=== PATIENT | female | born 1995 | race Caucasian/White ===

== ENCOUNTER 2017-10-25 10:24 | Emergency (ER) | payer BC ==
--- NOTE | 2017-10-25 11:11 | ED ---
HPI Cardiac - HPI Summary HPI Summary: This is scribe Arianna Castano documenting for attending Luis Holland MD. The patient is a 22 y/o F presenting to [facility] c/o heart rate intermittently increasing and decreasing with episodes of chest pain and heart palpitations worsening in the last month. She has a hx of hyperthyroidism, which causes her heart rate to increase into the 100s. She has noticed that her heart rate has gone down into the 50s and 60s but is increasing back into the 90s. This has been happening more quickly than usual with associated sharp and stabbing pain, but she is not currently in any pain. She additionally c/o extreme dizziness and dry cough. She denies nausea and vomiting. The patient is not from this area , but she sees a scraper operator at [facility] in the [place] area. She does not remember the last time she had her TSH checked. She notes that she has a previous hx of small murmur. She had cholecysectomy. FHx of HTN, thyroid cancer, and oralia's thyroiditis. She does not smoke or drink alcohol. I, Dr. Holland personally performed the services described in this documentation as scribed in my presence and it is both accurate and complete. - History of Current Complaint Chief Complaint: EDDysrhythmPalp Stated Complaint: CHEST DISCOMFORT Time Seen by Provider: 10/25/17 10:28 Hx Obtained From: Patient Onset/Duration: Started Days Ago, Still Present Timing: Intermittent Initial Severity: Mild Current Severity: Mild Pain Intensity: 0 Pain Scale Used: 0-10 Numeric Chest Pain Location: Diffuse Chest Pain Radiates: No Character: Sharp/Stabbing Aggravating Factor(s): Nothing Alleviating Factor(s): Nothing Associated Signs and Symptoms: Positive: Dizziness, Cough - dry. Negative: Nausea, Vomiting - Allergy/Home Medications Allergies/Adverse Reactions: Allergies Allergy/AdvReac Type Severity Reaction Status Date / Time erythromycin base Allergy Rash Verified 10/25/17 10:31 Home Medications: Home Medications Pantoprazole Sodium [Protonix] 40 mg PO DAILY 10/25/17 [History Confirmed ] Propranolol HCl 10 mg PO TID 10/25/17 [History Confirmed 10/25/17] Propylthiouracil 50 mg PO DAILY 10/25/17 [History Confirmed 10/25/17] PMH/Surg Hx/FS Hx/Imm Hx Endocrine/Hematology History: Reports: Hx Thyroid Disease - hyperthyroid Denies: Hx Diabetes Cardiovascular History: Denies: Hx Hypertension Sensory History: Denies: Hx Deafness Opthamlomology History: Denies: Hx Legally Blind EENT History: Denies: Hx Deafness Infectious Disease History: No Infectious Disease History: Denies: Traveled Outside the [place] in Last 30 Days - Family History Known Family History: Positive: Hypertension, Other - oralia's thyroiditis, thyroid cancer - Social History Alcohol Use: None Substance Use Type: Reports: None Smoking Status (MU): Never Smoked Tobacco Review of Systems Positive: Other - dizziness Positive: Palpitations, Chest Pain Positive: Cough - dry Negative: Vomiting, Nausea All Other Systems Reviewed And Are Negative: Yes Physical Exam - Summary Physical Exam Summary: VITAL SIGNS: Reviewed. GENERAL: Patient is a well-developed and obese female who is lying comfortable in the stretcher. Patient is not in any acute respiratory distress. HEAD AND FACE: No signs of trauma. No ecchymosis, hematomas or skull depressions. No sinus tenderness. EYES: PERRLA, EOMI x 2, No injected conjunctiva, no nystagmus. EARS: Hearing grossly intact. Ear canals and tympanic membranes are within normal limits. MOUTH: Oropharynx within normal limits. NECK: Supple, trachea is midline, no adenopathy, no JVD, no carotid bruit, no c- spine tenderness, neck with full ROM. CHEST: Symmetric, no tenderness at palpation LUNGS: Clear to auscultation bilaterally. No wheezing or crackles. CVS: Regular rate and rhythm, S1 and S2 present, no murmurs or gallops appreciated. ABDOMEN: Soft, non-tender. No signs of distention. No rebound no guarding, and no masses palpated. Bowel sounds are normal. EXTREMITIES: FROM in all major joints, no edema, no cyanosis or clubbing. NEURO: Alert and oriented x 3. No acute neurological deficits. Speech is normal and follows commands. SKIN: Dry and warm Triage Information Reviewed: Yes Vital Signs On Initial Exam: Initial Vitals Temp Pulse Resp BP Pulse Ox 97.7 F 83 18 139/105 99 10/25/17 10:33 10/25/17 10:33 10/25/17 10:33 10/25/17 10:33 10/25/17 10:33 Vital Signs Reviewed: Yes Diagnostics - Vital Signs Vital Signs Temp Pulse Resp BP Pulse Ox 10/25/17 10:44 81 22 152/75 100 10/25/17 10:42 95 10/25/17 10:33 97.7 F 83 18 139/105 99 - Laboratory Result Diagrams: 10/25/17 11:22 10/25/17 11:22 Lab Statement: Any lab studies that have been ordered have been reviewed, and results considered in the medical decision making process. - Radiology CXR Xray Interpretation: No Acute Changes - No evidence for acute disease. ED physician has reviewed this report. Radiology Interpretation Completed By: Radiologist - EKG 11:11 Cardiac Rate: NL - 70 BPM EKG Rhythm: Sinus Rhythm EKG Interpretation: No ST elevations. Re-Evaluation - Re-Evaluation First Eval Re-Evaluation Time: 01:10 Change: Improved Comment: I spoke with the patient about discharge home with dx of chest pain and heart palpitations. She is agreeable with this plan. Disposition - Course Course Of Treatment: The patient was found to have increased BP in the ED. The patient will follow up with PCP for better control of BP. Assessment/Plan: This patient is a 22-year-old female who presents to the emergency department with chief complaint of having chest pain and palpitations. The patient has past medical history significant for Hashimotos disease. The patient is taken PTU and metoprolol. Blood test results without any significant abnormality, including the TSH and T4 which is normal. EKG doesnt show any abnormality. Chest x-ray impression: No acute abnormality. Since I did not find any signs of arrhythmia I discussed the findings and test results with the patient that she probably would benefit of a Holter monitor which he will be provided with the primary care physician. She was also requested to follow up with cardiology. I discussed all the findings and test results with the patient. Patient was instructed to return to the emergency room immediately if any of the symptoms return or worsens. Plan of care was discussed with the patient and understands and agrees. All questions were answered at patient satisfaction. There were no further complaints or concerns. Lung exam before discharge: CTA B/L. Good air exchange. No wheezing or crackles heard. CVS: S1 and S2 present. No murmurs appreciated. Patient is alert and oriented x 3. Patient is hemodynamically stable. Patient will be discharged home with follow up PCP in the next 2-3 days - Differential Dx - Cardiopulmonary Differential Diagnoses - Cardiopulmonary: CAD, CHF, Chest Wall Pain, Paroxysmal SVT, Paroxysmal VT, Pleurisy - Diagnoses Provider Diagnoses: Chest pain, Heart palpitations Discharge - Sign-Out/Discharge Documenting (check all that apply): Patient Departure - Patient will be discharged home. - Discharge Plan Condition: Stable Disposition: HOME Patient Education Materials: Chest Pain (ED), Heart Palpitations (ED) Referrals: [facility] [place] PHYSICIAN REFERRAL [Outside] - 1 Week Additional Instructions: FOLLOW UP WITH YOUR PRIMARY CARE PROVIDER WITHIN 1 WEEK FOR HIGH BLOOD PRESSURE NOTED TODAY. RETURN TO THE ED FOR ANY WORSENING OR NEW SYMPTOMS. Attestations Scribe Attestation: This is denisha Castano documenting for attending Dr. Luis Holland MD. User Type: Provider with Scribe Provider Attestation: The documentation recorded by the scribe accurately reflects the service I personally performed and the decisions made by me. Addendum entered and electronically signed by Luis Holland MD 10/28/17 12:23:
[2017-10-25 11:40] LABS: ABS Basophils 0 10^3/ul (0-0.2); ABS Eosinophils 0.2 10^3/ul (0-0.6); ABS Lymphocytes 2.8 10^3/ul (1.0-4.8); ABS Monocytes 0.4 10^3/ul (0-0.8); ABS Neutrophils 6.1 10^3/ul (1.5-7.7); ABS Nucleated RBC 0 10^3/ul; Eosinophil % 1.8 % (0-6); Hematocrit 41 % (35-47); Hemoglobin 13.5 g/dl (12.0-16.0); Lymphocyte % 29.8 % (25-47); Mean Corpuscular HGB Conc 33 g/dl (31-36); Mean Corpuscular Hemoglobin 26 pg (27-31); Mean Corpuscular Volume 79 fL (80-97); Mean Platelet Volume 7.7 um3 (7.4-10.4); Nucleated Red Blood Cells % 0; Platelet Count 374 10^3/ul (150-450); Red Blood Count 5.11 10^6/ul (4.00-5.40); Red Cell Distribution Width 15 % (10.5-15); White Blood Count 9.5 10^3/ul (3.5-10.8)
[2017-10-25 11:52] LABS: EGFR Non-African American 108.1 (>60)
--- NOTE | 2017-10-25 12:32 | RAD ---
INDICATION: Chest pain. COMPARISON: There are no prior studies available for comparison. TECHNIQUE: A portable view of the chest was obtained. FINDINGS: Cardiac and mediastinal contours appear to be within normal limits. The lungs are clear. No pleural effusion is seen. IMPRESSION: NO EVIDENCE FOR ACUTE DISEASE.
[2017-10-25 14:50] VITALS: BP 134/74
== END 2017-10-25 14:56 | disposition home or self-care (01) ==
LOC: ED 10:24
DX: R07.9 Chest pain, unspecified (principal); R00.2 Palpitations; R42 Dizziness and giddiness; R05 Cough
CPT/HCPCS: 36415; 71045; 80053; 82550; 83605; 83735; 83880; 84436; 84443; 84484; 84702; 85025; 93005; 99283